=== PATIENT | female | born 1995 | race Caucasian/White ===

== ENCOUNTER 2023-07-14 11:59 | Outpatient (REF) | payer OTHER, SELFPAY ==
--- NOTE | 2023-07-14 11:43 | PAPFT_PTH ---
PATIENT: Ezequiel Marie LOC: [facility] U#:[id number] AGE/SX: 28/F ROOM: RE07/14/[address]: Lynette Duran : 1995 BED: DIS: 07/14/2023 SPEC #: [id number] RECD: 07/14/23 13:22 STATUS: NIKHIL REQ #: [id number] CALVIN: 07/14/23 11:[address]: Lynette Duran DEPT: [facility], 1928–1983 Cytology RECD BY: Yaritza Hernández ENTERED: 07/14/23 13:22 SP TYPE: PAPFT OTHR DR: Unknown,Unknown Tissues: 1 - CX/ENDOCX FOR PAP SMEARS Procedures: PAP THIN PREP/[facility] Screening Comments: [id number]
[2023-07-15 11:55] LABS: Chlamydia Result Negative (Negative); GC Result Negative (Negative)
== END 2023-07-14 12:00 | disposition home or self-care (01) ==
LOC: LBN 11:59
PROVIDERS: Visit Provider Obstetrics & Gynecology Gynecology
DX: Z11.3 Encounter for screening for infections with a predominantly sexual mode of transmission (principal)
CPT/HCPCS: 87491; 87591; 88142

== ENCOUNTER 2023-07-21 09:55 | Outpatient (CLI) | payer OTHER, SELFPAY ==
[2023-07-21 11:14] LABS: Anion Gap 6.6 mmol/L (3-11); BUN 9 mg/dL (7-18); CO2 27.4 mmol/L (21.0-32.0); CREATININE 0.8 mg/dL (0.55-1.02); Calcium 9.1 mg/dL (8.5-10.1); Chloride 103 mmol/L (98-107); Estimated GFR 102.86 (mL/min/1.73m2); Glucose 90 mg/dL (74-106); Potassium 3.8 mmol/L (3.5-5.1); Sodium 137 mmol/L (136-145)
[2023-07-29 17:57] LABS: Testosterone, Total 38 ng/dL (8-60)
== END 2023-07-21 09:56 | disposition home or self-care (01) ==
LOC: LBO 09:56
PROVIDERS: Visit Provider Obstetrics & Gynecology Gynecology
DX: L70.0 Acne vulgaris (principal); Z00.00 Encounter for general adult medical examination without abnormal findings; Z87.42 Personal history of other diseases of the female genital tract
CPT/HCPCS: 36415; 80048; 84402; 84403